=== PATIENT | female | born 1950 | race African-American/Black ===

== ENCOUNTER 2018-08-16 08:51 | Inpatient (IN) | payer MEDICARE, OTHER ==
[~2018-08-16] VITALS: Ht 162.6 cm; Wt 64.0 kg
[2018-08-16] MEDS ORDERED: SODIUM CHLORIDE 0.9% 1,000 ML IV ONE (09:12)
[2018-08-16 09:42] LABS: HEMATOCRIT. 32.2 % (36.0-48.0); HEMOGLOBIN. 10.8 g/dL (12.0-16.0); MEAN CORPUSCULAR HEMOGLOBIN 35.4 pg (28.0-32.0); MEAN CORPUSCULAR VOLUME 105.4 fL (81.0-99.0); MEAN PLATELET VOLUME 10.1 fl (7.4-10.4); PLATELET 222 x1000/uL (130-400); RED BLOOD CELL COUNT 3.06 mill/uL (4.2-5.4); RED CELL DISTRIBUTION WIDTH 14.4 % (11.6-14.6)
[2018-08-16 09:49] LABS: CHLORIDE 96 mEq/L (98-107)
[2018-08-16 09:50] LABS: INR 1.2; PROTHROMBIN TIME 12.1 sec (9.6-11.0)
[2018-08-16 10:12] LABS: PLATELET ESTIMATE NORMAL
[2018-08-16 11:04] LABS: CLARITY URINE CLOUDY (CLEAR); COLOR URINE YELLOW (YELLOW); KETONES URINE NEGATIVE (NEGATIVE); LEUKOCYTE ESTERASE URINE 1+ (NEGATIVE); NITRITE URINE NEGATIVE (NEGATIVE); OCCULT BLOOD URINE 3+ (NEGATIVE); PROTEIN URINE 1+ (NEGATIVE); SPECIFIC GRAVITY URINE 1.012 (1.005-1.030); UROBILINOGEN URINE 0.2 E.U./dL (0.2-1.0)
[2018-08-16] MEDS ORDERED: CEFTRIAXONE 1 G PREMIX 50 ML IV ONE (12:15)
[2018-08-16 14:18] VITALS: BP 152/66
[2018-08-16 14:23] VITALS: BP 152/66
[2018-08-16] MEDS ORDERED: ONDANSETRON HCL 4MG/2ML INJ IV PRN (14:30)
[2018-08-16] MEDS ORDERED: HYDROCODONE/ACETAMINOPHEN 5/325MG TABLET PO PRN (14:30)
[2018-08-16] MEDS ORDERED: DOCUSATE SODIUM 100MG CAPSULE PO PRN (14:30)
[2018-08-16] MEDS ORDERED: MAGNESIUM/ALUMINUM HYDROXIDE/SIMETHICONE 30ML UDC PO PRN (14:30)
[2018-08-16] MEDS ORDERED: CLONIDINE 0.1MG TABLET PO PRN (14:30)
[2018-08-16] MEDS ORDERED: LORAZEPAM 2MG/ML CPJ IV PRN (14:30)
[2018-08-16] MEDS ORDERED: DIPHENHYDRAMINE 50MG/ML VIAL IV PRN (14:30)
[2018-08-16] MEDS ORDERED: GUAIFENESIN 200MG/10ML SUGAR FREE UDC PO PRN (14:30)
[2018-08-16] MEDS ORDERED: ACETAMINOPHEN 325MG TABLET PO PRN (14:30)
[2018-08-16] MEDS ORDERED: ACETAMINOPHEN 650MG SUPP PR PRN (14:30)
[2018-08-16] MEDS ORDERED: IPRATROPIUM/ALBUTEROL 0.5-3(2.5)MG/3ML NEB INH PRN (14:30)
[2018-08-16] MEDS ORDERED: CLON2TAB PO (14:37)
[2018-08-16] MEDS ORDERED: LORA-249 PO (14:37)
[2018-08-16 17:27] LABS: HEPATITIS B SURFACE ANTIGEN NEGATIVE
[2018-08-16 17:53] LABS: BG BASE EXCESS -4.7 mmol/L (-2.0-2.0); BG CARBOXYHEMOGLOBIN 0.3 % (0.5-1.5); BG DEOXYHEMOGLOBIN 3.7 % (0.0-5.0); BG FRACTION INSPIRED OXYGEN 21; BG HCO3 ACT 18.4 mmol/L (22.0-26.0); BG METHEMOGLOBIN 0.3 % (0.0-1.5); BG OXYGEN SATURATION 96.3 % (92.0-98.5); BG OXYHEMOGLOBIN 95.7 % (94.0-97.0); BG PH 7.436 (7.350-7.450); BG PO2 84.6 mmHg (75.0-100.0); BG SAMPLE SITE RIGHT BRACHIAL; BG TOTAL HEMOGLOBIN 10.9 g/dL (12.0-18.0); BG VENT MODE ROOM AIR
[2018-08-16] MEDS: PIPERACILLIN/TAZ 2.25G PREMIX 50 ML IV SCH (17:55)
[2018-08-16 17:56] LABS: HEPATITIS A AB IGM NEGATIVE (NEGATIVE)
[2018-08-16] MEDS ORDERED: VANCOMYCIN 1250MG in DEXTROSE 5% WATER 250ML IV NR (18:00)
[2018-08-16] MEDS: FOLIC ACID 1MG TABLET PO SCH (18:03)
[2018-08-16] MEDS: SODIUM CHLORIDE 0.9% 1,000 ML IV SCH (18:03)
[2018-08-16] MEDS: MULTIVITAMINS,THER W-MINERALS TABLET PO SCH (18:03)
[2018-08-16 20:00] VITALS: BP 105/67
[2018-08-16 22:13] LABS: *AMPHETAMINES SCREEN URINE NEGATIVE (NEGATIVE); *BARBITURATES SCREEN URINE NEGATIVE (NEGATIVE); *BENZODIAZEPINES SCREEN URINE NEGATIVE (NEGATIVE)
[2018-08-16 22:14] LABS: *COCAINE SCREEN URINE NEGATIVE (NEGATIVE); CANNABINOID URINE SCREEN NEGATIVE (NEGATIVE); METHADONE URINE SCREEN NEGATIVE (NEGATIVE); OPIATES URINE SCREEN NEGATIVE (NEGATIVE); PHENCYCLIDINE URINE SCREEN NEGATIVE (NEGATIVE)
[2018-08-16] MEDS: FAMOTIDINE 20MG/2ML VIAL IV SCH (22:33)
[2018-08-17] VITALS (7 sets, daily range): BP systolic 92–138; BP diastolic 49–76
[2018-08-17] MEDS: PIPERACILLIN/TAZ 2.25G PREMIX 50 ML IV SCH ×3 (00:10→20:39)
[2018-08-17] MEDS: SODIUM CHLORIDE 0.9% 1,000 ML IV SCH ×3 (04:26→17:31)
[2018-08-17 07:16] LABS: HEMATOCRIT. 27.3 % (36.0-48.0); HEMOGLOBIN. 9.6 g/dL (12.0-16.0); MEAN CORPUSCULAR HEMOGLOBIN 36.4 pg (28.0-32.0); MEAN CORPUSCULAR VOLUME 103.9 fL (81.0-99.0); MEAN PLATELET VOLUME 9.9 fl (7.4-10.4); PLATELET 224 x1000/uL (130-400); RED BLOOD CELL COUNT 2.63 mill/uL (4.2-5.4); RED CELL DISTRIBUTION WIDTH 14.5 % (11.6-14.6)
[2018-08-17 07:52] LABS: CHLORIDE 100 mEq/L (98-107)
[2018-08-17] MEDS: MULTIVITAMINS,THER W-MINERALS TABLET PO SCH (08:00)
[2018-08-17] MEDS: FOLIC ACID 1MG TABLET PO SCH (08:00)
[2018-08-17 08:06] LABS: LDL CHOLESTEROL 83 mg/dL (5-100)
[2018-08-17 08:08] LABS: T4 FREE 1.12 ng/dL (0.76-1.46)
[2018-08-17 08:09] LABS: HDL CHOLESTEROL 12 mg/dL (40-59)
[2018-08-17] MEDS ORDERED: POTASSIUM CHLORIDE 20MEQ TABLET SR PO NR (10:45)
[2018-08-17] MEDS ORDERED: LACTULOSE 20G/30ML UDC PO PRN (15:45)
[2018-08-17] MEDS ORDERED: LACTULOSE 20G/30ML UDC PO NR (15:45)
[2018-08-17 17:55] LABS: PLATELET ESTIMATE NORMAL
[2018-08-17] MEDS: FAMOTIDINE 20MG/2ML VIAL IV SCH (20:39)
[2018-08-18] VITALS: BP_SYST 124; BP_SYST 134; BP_DIAS 71; BP_DIAS 78
[2018-08-18 04:00] VITALS: BP 140/79
[2018-08-18 06:05] LABS: HEMATOCRIT 26.5 % (36.0-48.0); HEMOGLOBIN 9.1 g/dL (12.0-16.0); MEAN CORPUSCULAR HEMOGLOBIN 36.3 pg (28.0-32.0); MEAN CORPUSCULAR VOLUME 106.3 fL (81.0-99.0); PLATELET 220 x1000/uL (130-400); RED CELL DISTRIBUTION WIDTH 14.8 % (11.6-14.6)
[2018-08-18 06:33] LABS: CHLORIDE 106 mEq/L (98-107)
[2018-08-18 08:00] VITALS: BP 131/68
[2018-08-18] MEDS: FOLIC ACID 1MG TABLET PO SCH (08:51)
[2018-08-18] MEDS: MULTIVITAMINS,THER W-MINERALS TABLET PO SCH (08:51)
[2018-08-18] MEDS: PIPERACILLIN/TAZ 2.25G PREMIX 50 ML IV SCH (08:51)
[2018-08-18 12:00] VITALS: BP 132/63
[2018-08-18 12:38] VITALS: BP 132/63
[2018-08-18] MEDS ORDERED: METRONIDAZOLE 500MG TABLET PO SCH (14:00)
== END 2018-08-18 14:06 | disposition home or self-care (01) | DRG 682 ==
LOC: EDBEDREQ 09:15 → ER 09:51 → 6WST 12:07 → EDBD 12:07 → EDBEDREQ 12:10 → ENRESERV 12:57 → 5WST 08-17 13:32
PROVIDERS: ADMIT Internal Medicine; ATTEND Internal Medicine
DX: N17.9 Acute kidney failure, unspecified (principal); K57.31 Diverticulosis of large intestine without perforation or abscess with bleeding; N39.0 Urinary tract infection, site not specified; E72.20 Disorder of urea cycle metabolism, unspecified; E87.1 Hypo-osmolality and hyponatremia; R45.851 Suicidal ideations; G93.40 Encephalopathy, unspecified; E46 Unspecified protein-calorie malnutrition; R65.10 Systemic inflammatory response syndrome (SIRS) of non-infectious origin without acute organ dysfunction; G90.8 Other disorders of autonomic nervous system; E86.0 Dehydration; I12.9 Hypertensive chronic kidney disease with stage 1 through stage 4 chronic kidney disease, or unspecified chronic kidney disease; N18.9 Chronic kidney disease, unspecified; E78.5 Hyperlipidemia, unspecified; F32.9 Major depressive disorder, single episode, unspecified; F41.9 Anxiety disorder, unspecified; K59.00 Constipation, unspecified; Z90.710 Acquired absence of both cervix and uterus; R74.0 Nonspecific elevation of levels of transaminase and lactic acid dehydrogenase [LDH]; E80.6 Other disorders of bilirubin metabolism; F10.10 Alcohol abuse, uncomplicated; F03.90 Unspecified dementia, unspecified severity, without behavioral disturbance, psychotic disturbance, mood disturbance, and anxiety; E86.9 Volume depletion, unspecified; D53.9 Nutritional anemia, unspecified; Z79.899 Other long term (current) drug therapy
CPT/HCPCS: 36415; 36600; 71045; 74176; 76700; 80061; 80202; 80305; 80320; 82140; 82270; 82375; 82805; 84439; 84443; 85027; 86705; 86709; 86803; 86850; 86900; 87340; 93005; 93306; 93970; 97162; 99285; C1893; J0696; J2543; J3370; J3490; J7030; J7060; G0480